=== PATIENT | female | born 1940 | race Caucasian/White ===

== ENCOUNTER 2018-01-25 14:53 | Emergency (ER) | payer MEDICARE, BC ==
[2018-01-25 15:18] VITALS: BP 119/71
--- NOTE | 2018-01-25 15:39 | UC ---
Knee Pain HPI - HPI Summary HPI Summary: Patient accompanied by daughter, patient travels back and forth from [place] and states that for the past 2 days she has been unable to bear weight due to acute pain starting from the back of her left knee radiating to her calf. Patient denies trauma, fall before onset of pain. SHE has felt chills but no fever. She denies history of gout in the past. PMH of Afib, GERD, hypothyroidism. Patient states she bruises easily but is not taking any blood thinners, she has not been taking any aspirin. - History of Current Complaint Chief Complaint: UCLowerExtremity Stated Complaint: L KNEE,LEG PAIN Time Seen by Provider: 01/25/18 15:13 Hx Obtained From: Patient Hx Last Menstrual Period: post ?: No Onset/Duration: Sudden Onset, Lasting Days Severity Initially: Moderate Severity Currently: Severe Pain Intensity: 10 Character: Dull, Aching Aggravating Factor(s): Movement, Weight Bearing, Prolonged Standing, Stairs Alleviating Factor(s): Rest Associated Signs And Symptoms: Positive: Swelling, Weakness Able to Bear Weight: No - Risk Factors Septic Arthritis Risk Factor: Extremes of Age Gout Risk Factor: Age ^ 42, Obesity - Allergies/Home Medications Allergies/Adverse Reactions: Allergies Allergy/AdvReac Type Severity Reaction Status Date / Time celecoxib [From Celebrex] Allergy Severe heart pt Verified 01/25/18 15:19 rofecoxib [From Vioxx] Allergy Severe heart pt Verified 01/25/18 15:19 Home Medications: Home Medications Aspirin EC TAB* [Ecotrin EC Low Dose 81 MG*] 81 mg PO DAILY 01/25/18 [History Confirmed 01/25/18] Atorvastatin* [Lipitor 20 MG*] 1 tab PO DAILY 01/25/18 [History Confirmed ] Flecainide TAB(NF) 50 mg PO BID 01/25/18 [History Confirmed 01/25/18] Gabapentin CAP(*) [Neurontin 300 CAP(*)] 900 mg PO ONCE 01/25/18 [History Confirmed 01/25/18] Gabapentin CAP(*) [Neurontin 400 mg CAP(*)] 1,200 mg PO BEDTIME 01/25/18 [ History Confirmed 01/25/18] Omeprazole CAP* [Prilosec CAP* 20 MG] 1 tab PO DAILY 01/25/18 [History Confirmed 01/25/18] Pentosan Polysulfate Sodium [Elmiron] 1 tab PO DAILY 01/25/18 [History Confirmed 01/25/18] buPROPion HCl [Bupropion HCl Xl] 150 mg PO DAILY 01/25/18 [History Confirmed 08/14] PMH/Surg Hx/FS Hx/Imm Hx Endocrine History: Hypothyroidism, Dyslipidemia Cardiovascular History: Atrial Fibrillation GI/ History: Gastroesophageal Reflux Psychological History: Depression - Surgical History Surgical History: Yes Surgery Procedure, Year, and Place: bilateral mastectomy - Family History Known Family History: Positive: Unknown - Social History Alcohol Use: Rare Substance Use Type: None Smoking Status (MU): Never Smoked Tobacco Review of Systems Constitutional: Chills Musculoskeletal: Arthralgia, Myalgia All Other Systems Reviewed And Are Negative: Yes Physical Exam Triage Information Reviewed: Yes Appearance: Well-Appearing, Obese Vital Signs: Initial Vital Signs Temp 98.5 F 01/25/18 15:12 Pulse 86 01/25/18 15:12 Resp 16 01/25/18 15:12 BP 119/71 01/25/18 15:12 Pulse Ox 97 01/25/18 15:12 Vital Signs Reviewed: Yes Eyes: Positive: Conjunctiva Clear ENT: Positive: Hearing grossly normal Neck: Positive: Supple Respiratory: Positive: Chest non-tender, Lungs clear, Normal breath sounds, No respiratory distress Cardiovascular: Positive: RRR, No Murmur, Pulses Normal, Brisk Capillary Refill Abdomen Description: Positive: Nontender Bowel Sounds: Positive: Present Musculoskeletal: Positive: Edema @ - left knee with erythema and increased warmth compared to right knee.Knee effusion palpable in suprapatellar area, tender on patellar mobilization. Tender on palpation of popliteal fossa and insertion of hamstring tendon Skin Exam: Other - resolving hematomas in extremities, hematoma on distal thigh. Knee Pain Course/Dx - Course Course Of Treatment: Knee suprapatellar effusion and increased warmth on knee, start clindamycin as prescribed and [place] for pain PRN. xray showed severe OA changes and suprapatellar effusion. Under aseptic method, knee joint was tapped rendering 10cc of synovial fluid, awaiting results of cultures and fluid analysis as well as cbc, uric acid levels, comp 14 and CRP - Differential Dx/Diagnosis Provider Diagnoses: Left Knee effusion and pain Discharge - Sign-Out/Discharge Documenting (check all that apply): Discharge/Admit/Transfer - Discharge Plan Condition: Good Disposition: HOME Referrals: No Primary Care Phys,NOPCP [Primary Care Provider] - [facility]FERR[facility] [Outside] - Billing Disposition and Condition Condition: GOOD Disposition: Home
--- NOTE | 2018-01-25 16:33 | RAD ---
Indication: Left knee pain. 5 views of the left knee demonstrates joint space narrowing in the medial and lateral compartment. Degenerative changes of the patellofemoral joint is noted. IMPRESSION: Marked degenerative changes of the left knee.
[2018-01-25] MEDS ORDERED: Clindamycin CAP* 150 MG PO ONE ×2 (17:12→17:21)
[2018-01-25] MEDS ORDERED: HYDROcodone/ACETAMIN 5-325 MG* 1 TAB PO ONE ×2 (17:13→17:21)
[2018-01-26 12:19] LABS: Hematocrit 41 % (35-47); Hemoglobin 13.8 g/dl (12.0-16.0); Mean Corpuscular HGB Conc 33 g/dl (31-36); Mean Corpuscular Hemoglobin 31 pg (27-31); Mean Corpuscular Volume 92 fL (80-97); Mean Platelet Volume 10.8 um3 (7.4-10.4); Platelet Count 205 10^3/ul (150-450); Red Blood Count 4.51 10^6/ul (4.00-5.40); Red Cell Distribution Width 13 % (10.5-15); White Blood Count 8.8 10^3/ul (3.5-10.8)
[2018-01-26 12:49] LABS: EGFR Non-African American 56.7 (>60); Uric Acid 4.8 mg/dL (2.3-6.6)
[2018-01-26 12:52] LABS: ABS Basophils 0 10^3/ul (0-0.2); ABS Eosinophils 0 10^3/ul (0-0.6); ABS Lymphocytes 1.7 10^3/ul (1.0-4.8); ABS Monocytes 1.1 10^3/ul (0-0.8); ABS Neutrophils 5.9 10^3/ul (1.5-7.7); ABS Nucleated RBC 0 10^3/ul; Eosinophil % 0.2 % (0-6); Nucleated Red Blood Cells % 0.2
--- NOTE | 2018-01-26 17:18 | UC ---
- Progress Note Progress Note: 01/26/2018 Synovial fluid gram stain rom left knee: no organism seen. Pending fluid culture. BF RBC and nucleated not performed since sample clotted. Crystals not seen. CBC:WNL, CMP: WNL CRP: elevated, 61.80 Please wait wor fluid culture results. [place] Fam PA-C Discharge - Sign-Out/Discharge Documenting (check all that apply): Discharge/Admit/Transfer - D/C home - Discharge Plan Condition: Good Disposition: HOME Prescriptions: Clindamycin HCl 300 mg PO TID 7 Days #21 capsule HYDROcodone/ACETAMIN 5-325 MG* [[place] 5-325 TAB*] 1 tab PO Q8H PRN 3 Days #10 tab MDD 3 PRN Reason: Pain Patient Education Materials: Clindamycin (By mouth), Hydrocodone/Acetaminophen (By mouth), Osteoarthritis (ED), Swollen Knee Joint (ED) Referrals: [facility] PHYSICIAN REFERRAL [Outside] No Primary Care Phys,NOPCP [Primary Care Provider] - - Billing Disposition and Condition Condition: GOOD Disposition: Home
== END 2018-01-25 17:45 | disposition home or self-care (01) ==
LOC: UCEAST 14:53
DX: M25.462 Effusion, left knee (principal); E03.9 Hypothyroidism, unspecified; E78.5 Hyperlipidemia, unspecified; I48.91 Unspecified atrial fibrillation; K21.9 Gastro-esophageal reflux disease without esophagitis; F32.9 Major depressive disorder, single episode, unspecified
CPT/HCPCS: 20610; 36415; 80053; 82945; 83986; 84550; 85025; 86140; 87070; 87205; 87640; 87641; 89051; 89060; 99203; A9270-GY; G0463